=== PATIENT | female | born 1990 | race American Indian/Alaskan Native ===

== ENCOUNTER 2022-11-18 09:07 | Emergency (ER) | payer MEDICAID ==
[~2022-11-18] VITALS: Ht 165.1 cm; Wt 120.0 kg
[2022-11-18 09:21] VITALS: BP 129/85; PULSE 73; RESP 16; TEMP 97.8; O2SAT 98
[2022-11-18] MEDS ORDERED: normal saline 1000ML IV soln IVB ONE (09:30)
--- NOTE | 2022-11-18 09:50 | NUR ---
RN SPOKE WITH MIKE ELAINE D/T PT HAD IMAGING OF ABD AND LABS ORD AND PT IS HERE FOR RASH. PER PA HE WILL MODIFY ORDS AND SEE PT.
[2022-11-18] MEDS ORDERED: PERM60CR19 TOP (10:14)
[2022-11-18] MEDS ORDERED: TRIA15CR61 TOP (10:14)
== END 2022-11-18 10:24 | disposition home or self-care (01) ==
LOC: ER 09:08
DX: S91.352A Open bite, left foot, initial encounter (principal); S91.351A Open bite, right foot, initial encounter; Z88.0 Allergy status to penicillin; Z88.5 Allergy status to narcotic agent; W57.XXXA Bitten or stung by nonvenomous insect and other nonvenomous arthropods, initial encounter; Y93.89 Activity, other specified; Y92.89 Other specified places as the place of occurrence of the external cause; Y99.8 Other external cause status
CPT/HCPCS: 99283